=== PATIENT | male | born 1935 | race Caucasian/White ===

== ENCOUNTER 2018-04-22 08:06 | Emergency (ER) | payer BC ==
[~2018-04-22] VITALS: Ht 182.9 cm; Wt 86.2 kg
[2018-04-22] MEDS ORDERED: L.E.T. SYRINGE 5 ML ONE (08:18)
[2018-04-22] MEDS: L.E.T. SYRINGE 5 ML MM STA (08:20)
[2018-04-22] MEDS: TETANUS,DIPTH,PERTUSS P/F (BOOSTRIX) 0.5 ML VIAL IM STA (08:30)
[2018-04-22] MEDS: ACETAMINOPHEN 500 MG TAB (TYLENOL) PO STA (08:32)
--- NOTE | 2018-04-22 08:32 | ED Fall/Injury ---
General Stated Complaint: FELL AND HIT HEAD Source: patient Exam Limitations: no limitations History of Present Illness Date Seen by Provider: Apr 22, 2018 Time Seen by Provider: 08:11 Initial Comments Here with report of head injury. Apparently missed a step and hit his head on a piece of furniture when he fell. Denies neck or back pain. Denies injury or else. Does have a 3 cm irregular gash to the forehead above the left brow. Denies loss of consciousness with this episode but was dazed for a few minutes. Better now but does complain of frontal significant frontal headache. He is on blood thinners. Unsure of last tetanus. Occurred: just prior to arrival (proximally 30 minutes ago) Severity: moderate Injuries/Pain Location: head Context: tripped Loss of Consciousness: dazed Modifying Factors: Improves With Rest Associated Symptoms (Fall): No Abdominal Pain, No Chest Pain, No Confusion; Headache; No Nausea/Vomiting, No Neck Pain, No Shortness of Air, No Trouble Walking, No Vision Changes Allergies and Home Medications Allergies Coded Allergies: No Known Drug Allergies (Unverified , 04/22/18) Patient Home Medication List Home Medication List Reviewed: Yes Review of Systems Review of Systems Constitutional: see HPI; No chills, No fever Eyes: No Symptoms Reported Ears, Nose, Mouth, Throat: no symptoms reported Respiratory: no symptoms reported Cardiovascular: no symptoms reported Gastrointestinal: no symptoms reported Musculoskeletal: No back pain, No neck pain Skin: change in color, lesions Psychiatric/Neurological: Headache; Denies Weakness All Other Systems Reviewed Negative Unless Noted: Yes Past Konpjeo-Mmdwfb-Xvdjxc Hx Past Med/Social Hx: Reviewed Nursing Past Med/Soc Hx Patient Social History Alcohol Use: Occasionally Uses Recreational Drug Use: No Smoking Status: Never a Smoker Recent Foreign Travel: No Contact w/Someone Who Travel: No Past Medical History Surgeries: Yes (okay he's got a pacemaker) Pacemaker Respiratory: No Cardiac: Yes (. The medical problems) High Cholesterol, Hypertension, Irregular Heartbeat Neurological: No Genitourinary: No Gastrointestinal: Yes Gastroesophageal Reflux Musculoskeletal: No Endocrine: No Psychosocial: Yes (that he is any other surgeries besides) Depression Family Medical History Reviewed Nursing Family Hx No Pertinent Family Hx Physical Exam Vital Signs Vital Signs - First Documented 04/22/18 08:15 Temp 98.2 Pulse 61 Resp 18 B/P (MAP) 144/89 (107) Pulse Ox 100 Capillary Refill : Height, Weight, BMI Height: '" Weight: lbs. oz. kg; BMI Method: General Appearance: WD/WN, no apparent distress HEENT: PERRL/EOMI, TMs normal, pharynx normal Neck: non-tender, full range of motion, supple, normal inspection Cardiovascular: regular rate, rhythm, no murmur Respiratory: lungs clear (Vital signs), normal breath sounds Back: normal inspection, no CVA tenderness, no vertebral tenderness Extremities: non-tender, normal inspection Neurologic/Psychiatric: alert, oriented x 3 Skin: warm/dry, other (3 cm irregular-shaped laceration to the forehead above the left brow near midline.) [place] Coma Score Best Eye Response: (4) Open Spontaneously Best Verbal Response: (5) Oriented Best Motor Response: (6) Obeys Commands Procedures/Interventions Wound Location: Face Other Wound Location Forehead central above the left brow Wound Length (cm): 4 Wound's Depth, Shape: into muscle, irregular, bone Wound Explored: contaminated Irrigated w/ Saline (ccs): 250 Betadine Prep?: Yes Anesthesia: Lidocaine w/ Epi Volume Anesthetic (ccs): 5 Wound Debrided: minimal Suture: Chromic, Prolene Suture Size: 5-0 Number of Sutures: 14 Layer Closure?: 3 Number Deep Layer Sutures: 6 Sterile Dressing Applied?: Yes Progress Periosteum closed with 3 simple interrupted 4-0 chromic gut sutures and wound approximated with 3 more simple interrupted 4-0 chromic gut sutures. Closed topically with 8 simple interrupted 5-0 Prolene sutures. Tolerated procedure well with no complications. Deep wound washed vigorously with Betasept and saline prior to closure. Covered with antibiotic ointment and Band-Aid afterwards. Progress/Results/Core Measures Results/Orders Lab Results Laboratory Tests Test 04/22/18 09:55 Range/Units My Orders Orders - ASHIA MORILLO MD Ct Head/Cervical Spine Wo (04/22/18 08:20) Acetaminophen Tablet (Tylenol Tablet) (04/22/18 08:20) Dipht,Pertuss(Acell),Tet Adult (Boostrix (04/22/18 08:20) Lidocaine/Epi 1% 1:100,000 (Xylocaine /E (04/22/18 08:30) Let Solution (Let Solution) (04/22/18 08:18) Let Solution (Let Solution) (04/22/18 08:20) Lidocaine/Epi 2% 1:100,000 (Xylocaine/Ep (04/22/18 08:47) Protime With Inr (04/22/18 09:43) Cephalexin Capsule (Keflex Capsule) (04/22/18 10:18) Medications Given in ED Current Medications Medications Dose Ordered Sig/Silviano Route Start Time Stop Time Status Last Admin Dose Admin Lidocaine/ Epinephrine 20 ml STK-MED ONCE .ROUTE 04/22/18 08:47 04/22/18 08:50 DC 04/22/18 09:34 10 ML Vital Signs/I&O 04/22/18 08:15 Temp 98.2 Pulse 61 Resp 18 B/P (MAP) 144/89 (107) Pulse Ox 100 Progress Progress Note : Progress Note Seen and evaluated. CT head and neck ordered. Tetanus updated. LET applied to wound. Monitor patient. Tylenol 1 g by mouth given for headache. CT shows no acute findings. 1020: Wound closed in 3 layers including periostea, deep layer and superficial. Excellent approximation. Keflex 500 mg by mouth given afterwards. We will continue this for 5 more days. Discharged home with return precautions. Patient verbalize understanding instructions and agreement with plan. Diagnostic Imaging Diagonstic Imaging: CT Plain Films/CT/US/NM/MRI: c-spine, head Comments NAME: FLORENCIA DE LA TORRE [facility] REC#: [id number] PT STATUS: REG ER : 1935 PHYSICIAN: ASHIA MORILLO MD ADMIT DATE: 04/22/18/ER Draft Date of Exam:04/22/18 CT HEAD/CERVICAL SPINE WO PROCEDURE: CT head and CT cervical spine without contrast. TECHNIQUE: Multiple contiguous axial images were obtained through the brain and cervical spine without the use of intravenous contrast. Sagittal and coronal reformations through the cervical spine were then performed. INDICATION: Fall with trauma to the head. Laceration. COMPARISON: None. FINDINGS: CT HEAD: The ventricles and cortical sulci are diffusely prominent, compatible with age-related volume loss. There are confluent areas of abnormal, low attenuation in the periventricular white matter. This is consistent with small vessel ischemic changes; age-indeterminate. There is no prior study available for comparison. There is no midline shift or mass-effect. No acute intra-axial hemorrhage is seen. There are no abnormal areas of increased or decreased density to suggest acute hemorrhage or edema. No extra-axial masses or collections are present. Left supraorbital soft tissue defect is noted. The bony calvarium is intact. The visualized paranasal sinuses are unremarkable. The mastoid air cells are clear. CT CERVICAL SPINE: Static alignment is maintained. There is no significant anterolisthesis or retrolisthesis. There is no evidence of jumped facets. Vertebral body heights are maintained. There is no evidence acute fracture. No bony fragments are seen within the spinal canal. There are moderate multilevel degenerative changes consisting of intervertebral disc height loss with anterior and posterior disc bulges. These changes appear greatest at the C5-C6 and C6-C7 levels. Pre-and paravertebral soft tissue structures are unremarkable. Note is made of calcified carotid atherosclerosis. Included portions of lung apices show background of emphysematous disease. IMPRESSION: 1. No acute intracranial abnormality. No CT evidence of mass, acute infarct or intracranial hemorrhage. 2. Small vessel ischemic changes in the periventricular and subcortical white matter; likely chronic. 3. No acute fracture or dislocation of cervical spine. 4. Multilevel degenerative changes, greatest at C5-C6 and C6-C7 levels. Dictated on workstation # [id number] Dict: 04/22/18904 Trans: 04/22/18912 [facility] [id number] Interpreted by: LESVIA KIM MD Electronically signed by: Departure Impression Primary Impression: Laceration of forehead, complicated Qualified Codes: S01.81XA - Laceration without foreign body of other part of head, initial encounter Disposition: 01 HOME, SELF-CARE Condition: Improved Departure-Patient Inst. Decision time for Depature: 10:27 Referrals: NO,LOCAL PHYSICIAN (PCP/Family) Primary Care Physician Patient Instructions: Laceration Repair With Stitches (DC) Add. Discharge Instructions: Use antibiotic ointment and Band-Aid over the wound twice daily for the next several days and then as needed. Return next Friday morning for suture removal or check. Take medications as directed. You may take Tylenol 1000 mg every 6- 8 hours as needed for pain. He should rest over the next one to 2 days. You can continue your medicine as previously prescribed. Return for worse pain, fever, swelling, foul-smelling drainage, increasing redness around the wound or other concerns as needed. Scripts Cephalexin (Cephalexin) 500 Mg Tablet 500 MG PO QID, #19 TAB 0 Refills Prov: ASHIA MORILLO MD 04/22/18 ASHIA MORILLO MD Apr 22, 2018 08:32
--- NOTE | 2018-04-22 09:14 | Diagnostic Imaging Report ---
PROCEDURE: CT head and CT cervical spine without contrast. TECHNIQUE: Multiple contiguous axial images were obtained through the brain and cervical spine without the use of intravenous contrast. Sagittal and coronal reformations through the cervical spine were then performed. INDICATION: Fall with trauma to the head. Laceration. COMPARISON: None. FINDINGS: CT HEAD: The ventricles and cortical sulci are diffusely prominent, compatible with age-related volume loss. There are confluent areas of abnormal, low attenuation in the periventricular white matter. This is consistent with small vessel ischemic changes; age-indeterminate. There is no prior study available for comparison. There is no midline shift or mass-effect. No acute intra-axial hemorrhage is seen. There are no abnormal areas of increased or decreased density to suggest acute hemorrhage or edema. No extra-axial masses or collections are present. Left supraorbital soft tissue defect is noted. The bony calvarium is intact. The visualized paranasal sinuses are unremarkable. The mastoid air cells are clear. CT CERVICAL SPINE: Static alignment is maintained. There is no significant anterolisthesis or retrolisthesis. There is no evidence of jumped facets. Vertebral body heights are maintained. There is no evidence acute fracture. No bony fragments are seen within the spinal canal. There are moderate multilevel degenerative changes consisting of intervertebral disc height loss with anterior and posterior disc bulges. These changes appear greatest at the C5-C6 and C6-C7 levels. Pre-and paravertebral soft tissue structures are unremarkable. Note is made of calcified carotid atherosclerosis. Included portions of lung apices show background of emphysematous disease. IMPRESSION: 1. No acute intracranial abnormality. No CT evidence of mass, acute infarct or intracranial hemorrhage. 2. Small vessel ischemic changes in the periventricular and subcortical white matter; likely chronic. 3. No acute fracture or dislocation of cervical spine. 4. Multilevel degenerative changes, greatest at C5-C6 and C6-C7 levels. Dictated by: Dictated on workstation # [id number]
[2018-04-22] MEDS: LIDOCAINE/EPI 2% 1:100,00 (XYLOCAINE) 20 ML VIAL ONE (09:34)
[2018-04-22] MEDS: LIDOCAINE/EPI 1%-1:100,000 (XYLOCAINE) 20ML INJ ONE (09:35)
[2018-04-22 10:24] LABS: INR 2.4 (0.8-1.4); PROTHROMBIN TIME PATIENT 26.4 SEC (12.2-14.7)
[2018-04-22] MEDS ORDERED: CEPH500T PO (10:30)
[2018-04-22] MEDS: CEPHALEXIN 250 MG (KEFLEX) CAP PO STA (10:37)
[2018-04-22 10:38] VITALS: BP 136/84
== END 2018-04-22 10:38 | disposition home or self-care (01) ==
LOC: ER 08:10
DX: S01.81XA Laceration without foreign body of other part of head, initial encounter (principal); E78.00 Pure hypercholesterolemia, unspecified; I10 Essential (primary) hypertension; K21.9 Gastro-esophageal reflux disease without esophagitis; F32.9 Major depressive disorder, single episode, unspecified; R40.2142 Coma scale, eyes open, spontaneous, at arrival to emergency department; R40.2252 Coma scale, best verbal response, oriented, at arrival to emergency department; R40.2362 Coma scale, best motor response, obeys commands, at arrival to emergency department; Z23 Encounter for immunization; Z79.02 Long term (current) use of antithrombotics/antiplatelets; Z95.0 Presence of cardiac pacemaker; W10.8XXA Fall (on) (from) other stairs and steps, initial encounter; W22.09XA Striking against other stationary object, initial encounter
CPT/HCPCS: 13132; 36415; 70450; 72125; 85610; 90715